=== PATIENT | female | born 1970 | race Caucasian/White ===

== ENCOUNTER 2021-12-11 06:53 | Emergency (ER) | payer SELFPAY ==
[~2021-12-11] VITALS: Ht 175.3 cm; Wt 82.0 kg
[2021-12-11] MEDS ORDERED: OFLOXACIN0.3 % OS (07:29)
[2021-12-11 07:47] VITALS: BP 126/79
== END 2021-12-11 07:48 | disposition home or self-care (01) | DRG 125 ==
LOC: ED 06:53
DX: H10.9 Unspecified conjunctivitis (principal)

== ENCOUNTER 2022-01-13 09:15 | Emergency (ER) | payer SELFPAY ==
[~2022-01-13] VITALS: Ht 175.3 cm; Wt 84.0 kg
[~2022-01-13 09:15] MED LIST: OFLOXACIN0.3 % OS
[2022-01-13] MEDS ORDERED: VIGAMOX OU (11:05)
[2022-01-13 11:25] VITALS: BP 150/83
== END 2022-01-13 11:25 | disposition home or self-care (01) | DRG 125 ==
LOC: ED 09:15
DX: H10.33 Unspecified acute conjunctivitis, bilateral (principal)

== ENCOUNTER 2022-05-31 01:47 | Emergency (ER) | payer SELFPAY ==
[~2022-05-31] VITALS: Ht 175.3 cm; Wt 84.0 kg
[~2022-05-31 01:47] MED LIST changes: +VIGAMOX OU
[2022-05-31 02:09] VITALS: BP 137/90
[2022-05-31] MEDS ORDERED: FOLIC ACID1 MG PO (02:21)
[2022-05-31] MEDS ORDERED: KEPPRA750 M2 PO (02:21)
[2022-05-31] MEDS ORDERED: ATENOLOL25 MG PO (02:21)
[2022-05-31] MEDS ORDERED: ABILIFY20 MG PO (02:23)
[2022-05-31 02:49] VITALS: BP 124/81
[2022-05-31 03:00] VITALS: BP 136/82
[2022-05-31] MEDS ORDERED: KLONOPIN1 MG PO (03:16)
[2022-05-31 03:30] VITALS: BP 140/82
[2022-05-31 04:19] LABS: HEMATOCRIT 41.9 % (37.0-47.0); IMMATURE GRANULOCYTES 0.5 % (0.0-5.0); MEAN CORPUSCULAR HGB 29.8 pG CALC (26.0-32.0); MEAN CORPUSCULAR HGB CONC 32.7 g/dL CAL (32.0-36.0); NEUT# 7.3 thou/uL (2.00-7.15); RED BLOOD COUNT 4.6 mill/uL (4.20-5.60); RED CELL DISTRI WIDTH 12.4 % (11.5-15.5)
[2022-05-31 04:23] LABS: HEMOGLOBIN 13.7 g/dl (12.0-16.0); MEAN CELL VOLUME 91.1 fL CALC (80.0-100.0)
[2022-05-31 04:30] VITALS: BP 142/90
[2022-05-31 04:38] LABS: ALBUMIN 4.7 g/dL (3.2-5.0); ALKALINE PHOSPHATASE 80 u/l (38-126); ANION GAP 17 (6-22 (CALC)); BILIRUBIN, TOTAL 0.4 mg/dL (0.0-1.4); BUN 12 mg/dL (7-17); BUN/CREATININE RATIO 17 (12-20 (CALC)); CARBON DIOXIDE 22 mmol/l (22-30); CHLORIDE 106 mmol/l (95-108); CREATININE 0.7 mg/dL (0.5-1.0); GFR FOR AFR.AMER. > 60 ML/MIN (>=60 (CALC)); GFR OTHER RACES > 60 ML/MIN (>=60 (CALC)); POTASSIUM 4.2 mmol/l (3.5-5.1); SGOT/AST 34 u/l (14-36); SODIUM 141 mmol/l (137-146); TOTAL PROTEIN 7.6 g/dL (6.3-8.2)
[2022-05-31 04:40] LABS: ACT PARTIAL THROMBO TIME 24.1 SECONDS (20.0-32.5); INTERNATIONAL NORMALIZED RATIO 0.9 RATIO (0.7-1.3); PROTHROMBIN TIME 9.9 SECONDS (9.0-12.5)
[2022-05-31 05:15] VITALS: BP 142/90
== END 2022-05-31 05:00 | disposition short-term general hospital (02) | DRG 87 ==
LOC: ED 01:47
PROVIDERS: Family Medicine
DX: S06.350A Traumatic hemorrhage of left cerebrum without loss of consciousness, initial encounter (principal); S06.340A Traumatic hemorrhage of right cerebrum without loss of consciousness, initial encounter; G40.909 Epilepsy, unspecified, not intractable, without status epilepticus; W18.39XA Other fall on same level, initial encounter; Y92.003 Bedroom of unspecified non-institutional (private) residence as the place of occurrence of the external cause; Z98.2 Presence of cerebrospinal fluid drainage device; Z20.822 Contact with and (suspected) exposure to COVID-19